=== PATIENT | male | born 1985 | race Caucasian/White ===

== ENCOUNTER 2022-11-05 10:06 | Outpatient (CLI) | payer SELFPAY ==
--- NOTE | 2022-11-05 06:35 | W.ANESCHARGE ---
Anesthesia Charges Start Date/Time Anesthesia Start Date: 11/05/22 Anesthesia Start Time: 11:10 Stop Date/Time Anesthesia Stop Date: 11/05/22 Anesthesia Stop Time: 12:03
--- NOTE | 2022-11-05 12:03 | W.ANESCHARGE ---
Anesthesia Charges Start Date/Time Anesthesia Start Date: 11/05/22 Anesthesia Start Time: 11:10 Stop Date/Time Anesthesia Stop Date: 11/05/22 Anesthesia Stop Time: 12:03
--- NOTE | 2022-11-05 15:34 | W.ANESCHARGE ---
Anesthesia Charges Start Date/Time Anesthesia Start Date: 11/05/22 Anesthesia Start Time: 11:10 Stop Date/Time Anesthesia Stop Date: 11/05/22 Anesthesia Stop Time: 12:03
== END 2022-11-05 10:07 | disposition home or self-care (01) ==
PROVIDERS: PCP Nurse Practitioner Family; Visit Provider Surgery
DX: K92.1 Melena (principal); K22.81 Esophageal polyp; K31.89 Other diseases of stomach and duodenum; K92.2 Gastrointestinal hemorrhage, unspecified
CPT/HCPCS: 00813; 43239; 45378; 88305; J2704